=== PATIENT | female | born 1965 | race Hispanic/Latino ===

== ENCOUNTER 2016-09-21 10:38 | Day surgery (SDC) | payer OTHER ==
[2016-09-19 07:04] VITALS: BMI 49.6
[2016-09-21] MEDS ORDERED: Lactated Ringer's 1,000 ML IV ONE ×2 (12:55→13:37)
[2016-09-21] MEDS ORDERED: Midazolam 2 MG/2 ML VIAL ONE (13:00)
[2016-09-21] MEDS ORDERED: Propofol 10 mg/ml Inj (20 ML) ONE (13:00)
[2016-09-21] MEDS ORDERED: HYDROmorphone 0.5 mg/0.5 ml ISec IVP PRN (13:39)
--- NOTE | 2016-09-21 13:53 | PCM.SURG1 ---
Surgeon's Initial Post Op Note - Surgeon's Notes Surgeon: Delicia duran MD Production Estimator: none Type of Anesthesia: General LMA Anesthesia Administered By: Dr Tyler Pre-Operative Diagnosis: Endometrial hyperplasia simple without atypia, abnormal uterien bleeding Operative Findings: enlarged 10-12 week size uteurs, no adnexal masses on bimanuse, exam, normal appearing cervix, bilateral ostia visualized, thickened white endometrium throughtout cavity, no gross masses Post-Operative Diagnosis: same as above Operation Performed: Operative hysteroscopy Fractional dilation and currettage Specimen/Specimens Removed: Endocervical currettings, endometrial currettings Estimated Blood Loss: EBL {In ML}: 5 Blood Products Given: N/A Drains Used: No Drains Post-Op Condition: Good Date of Surgery/Procedure: 09/21/16 Time of Surgery/Procedure: 12:30
--- NOTE | 2016-09-21 14:23 | OP ---
PROCEDURE DATE: 09/21/2016 SURGEON: Dr. Delicia Piña. HANDLE ATTACHER: None. TYPE OF ANESTHESIA: General LMA. ANESTHESIOLOGIST: Anesthesia administered by Dr. Tyler. PREOPERATIVE DIAGNOSIS: Endometrial hyperplasia, simple without atypia, abnormal uterine bleeding. OPERATIVE FINDINGS: An enlarged 12-week size uterus, no adnexal masses on bimanual exam. Normal nj earing cervix, bilateral ostia visualized, thickened white endometrium throughout the cavity. No merrill ss masses. POSTOPERATIVE DIAGNOSIS: Endometrial hyperplasia, simple without atypia, abnormal uterine bleeding. OPERATION PERFORMED: Operative hysteroscopy ____ dilation and curettage. SPECIMEN REMOVED: Endocervical curettings, endometrial curettings. ESTIMATED BLOOD LOSS: 5 mL. BLOOD PRODUCTS: None. COMPLICATIONS: None. DESCRIPTION OF PROCEDURE: The patient is a 51-year-old who presented to the office with abnormal [place] r[place] bleeding. Upon further workup, an office endometrial biopsy was performed and the patient was g iven a diagnosis endometrial hyperplasia simple without atypia. The patient was then prescribed Prov era and was advised to take for 14 days. The patient was continuously bleeding despite conservative therapy being prescribed and D and C was recommended for complete sampling. The patient states that she did not take Provera as prescribed and waited for the D and C in order to proceed. The patient w as taken to the operating room where she was given general anesthesia. Once found be adequate, she w as positioned on the operating table in dorsal supine position with legs supported using stirrups. T he patient was prepped and draped in normal sterile fashion. Timeout was performed to confirm correc t patient and correct procedure. Bimanual exam was performed to confirm correct patient and correct procedure. A Hess retractor was placed in the anterior, posterior fornix of the vagina and the cervi x was adequately visualized. A single tooth tenaculum was placed on the anterior lip of the cervix. Endocervical curettings were obtained with a Toy curet and sent to pathology on [facility]. The ut erus was then sounded to 10 cm. The cervix was sequentially dilated with the Avel dilator to allow f or introduction of the hysteroscope under direct visualization using normal saline as the distending media. Upon visualization, there were no gross masses noted within the cavity and bilateral ostia we re visualized and there was a thickened endometrium white proliferative noted throughout the cavity. Following this, a gentle curettage was done 360 degrees until a gritty texture was noted. The endom etrial curettings were sent to pathology on [facility]. Following this, all instruments were removed. Th e single tooth tenaculum was removed. Good hemostasis at the tenaculum puncture sites. All instrume nts were removed. At the end of the procedure, all needle, sponge and instrument counts were noted t o be correct x 2. The patient tolerated the procedure well and was transferred to the recovery room in stable condition. Delicia Piña MD cc: [id number] TT: 09/21/2016 14:22:43 jn
[2016-09-21 15:11] VITALS: BP 140/92; PULSE 65; RESP 15; TEMP 97.5; O2SAT 99
== END 2016-09-21 15:21 | disposition home or self-care (01) ==
LOC: C.SDS 10:38
PROVIDERS: ATTEND Obstetrics & Gynecology
DX: N85.00 Endometrial hyperplasia, unspecified (principal)
CPT/HCPCS: 58558; 82948; 88305; J2250; J2704; J3010; J7120